=== PATIENT | male | born 1955 | race Caucasian/White ===

== ENCOUNTER 2016-11-07 01:34 | Emergency (ER) | payer MEDICAID ==
[~2016-11-07] VITALS: Ht 175.3 cm; Wt 69.0 kg
[~2016-11-07 01:34] MED LIST: LISI5TAB7 PO; NAPR220C PO; UNK BP MED
[2016-11-07] MEDS ORDERED: AMLO5TAB4 PO (01:45)
[2016-11-07] MEDS ORDERED: APAP/CODEINE 300/30MG TABLET PO PRN (02:00)
[2016-11-07] MEDS ORDERED: SODIUM CHLORIDE 0.9% 1,000ML IVBOLUS ONE (02:00)
[2016-11-07] MEDS ORDERED: SODIUM CHLORIDE FLUSH 10ML SYR IVF ONE (02:00)
[2016-11-07 02:57] LABS: HEMOGLOBIN 14.1 g/dL (13.7-18.0)
[2016-11-07 03:09] LABS: BLOOD UREA NITROGEN 7 mg/dL (7-18)
[2016-11-07 03:14] LABS: IS PT STATUS REG ER OR PRE ER? YES
[2016-11-07] MEDS ORDERED: OMNIPAQUE 350 MG/ML, 100ML BOTTLE ONE (03:52)
[2016-11-07] MEDS ORDERED: DIAZ5TAB PO (04:25)
[2016-11-07 05:37] LABS: RAPID INFLUENZA A Negative (Negative); RAPID INFLUENZA B Negative (Negative)
[2016-11-07 05:50] VITALS: BP 132/84
== END 2016-11-07 05:52 | disposition home or self-care (01) ==
LOC: ED 01:48
DX: R05 Cough (principal); I10 Essential (primary) hypertension; I48.91 Unspecified atrial fibrillation
CPT/HCPCS: 36415; 71020; 71275; 80048; 82040; 84484; 85025; 85379; 87400; 93005; 96360; 99285; J7030; Q9967

== ENCOUNTER 2017-02-09 13:10 | Inpatient (IN) | payer MEDICAID ==
[~2017-02-09] VITALS: Ht 175.3 cm; Wt 69.3 kg
[~2017-02-09 13:10] MED LIST changes: +AMLO5TAB4 PO; +DIAZ5TAB PO
[2017-02-09] MEDS ORDERED: MIDO5TAB PO (13:28)
[2017-02-09] MEDS ORDERED: TRAZ100T15 PO (13:28)
[2017-02-09] MEDS ORDERED: LISI-167 PO (13:28)
[2017-02-09] MEDS ORDERED: IBUP200C8 PO (13:28)
[2017-02-09] MEDS ORDERED: SODIUM CHLORIDE 0.9% 1,000ML IVBOLUS ONE (13:30)
[2017-02-09] MEDS ORDERED: SODIUM CHLORIDE FLUSH 10ML SYR IVF ONE (13:30)
[2017-02-09] MEDS ORDERED: KETOROLAC 30 MG/1 ML IVPush ONE (13:30)
[2017-02-09] MEDS ORDERED: PLEASE ENTER HEIGHT AND WEIGHT MC SCH (13:30)
[2017-02-09] MEDS ORDERED: KETOROLAC 30 MG/1 ML ONE (13:58)
[2017-02-09 14:13] LABS: ASPARTATE AMINO TRANSFERASE 22 U/L (15-37); BLOOD UREA NITROGEN 53 mg/dL (7-18)
[2017-02-09 14:18] LABS: IS PT STATUS REG ER OR PRE ER? YES
[2017-02-09] MEDS ORDERED: ONDANSETRON ODT 4 MG PO PRN (17:00)
[2017-02-09] MEDS ORDERED: hydrALAzine 20 MG/ML, 1ML IVPush PRN (17:00)
[2017-02-09] MEDS ORDERED: ACETAMINOPHEN 325 MG TABLET PO PRN (17:00)
[2017-02-09] MEDS ORDERED: DOCUSATE 100 MG CAPSULE PO PRN (17:00)
[2017-02-09] MEDS ORDERED: ONDANSETRON 2MG/ML, 2ML IVPush PRN (17:00)
[2017-02-09 17:13] VITALS: BP 123/78
[2017-02-09] MEDS ORDERED: POTASSIUM CHLORIDE 20 MEQ TAB.ER.PRT PO ONE ×2 (17:30→20:30)
[2017-02-09] MEDS ORDERED: PHARMACY MAY ADJ FOR RENAL FX MC PRN (17:30)
[2017-02-09] MEDS: SODIUM CHLORIDE 0.9% 1,000 ML IV SCH (18:19)
[2017-02-09] MEDS: TRAZODONE 100MG TABLET PO SCH (20:22)
[2017-02-09] MEDS: NICOTINE 7 MG/24 HR PATCH.TD24 TD SCH (20:23)
[2017-02-09] MEDS: HEPARIN 5,000 UNITS/ML, 1ML SQ SCH (20:23)
[2017-02-09 20:30] VITALS: BP 115/54
[2017-02-09 20:33] VITALS: BP 134/79
[2017-02-09 20:36] VITALS: BP 112/75
[2017-02-10] VITALS (7 sets, daily range): BP systolic 93–147; BP diastolic 63–79
[2017-02-10] MEDS: SODIUM CHLORIDE 0.9% 1,000 ML IV SCH ×3 (02:48→17:29)
[2017-02-10] MEDS: HEPARIN 5,000 UNITS/ML, 1ML SQ SCH ×3 (04:13→20:47)
[2017-02-10 05:16] LABS: BLOOD UREA NITROGEN 32 mg/dL (7-18)
[2017-02-10 05:19] LABS: ASPARTATE AMINO TRANSFERASE 15 U/L (15-37)
[2017-02-10] MEDS: THIAMINE 100MG TABLET PO SCH (09:21)
[2017-02-10] MEDS: MIDODRINE 5 MG TABLET PO SCH (09:21)
[2017-02-10] MEDS: FOLIC ACID 1 MG TABLET PO SCH (09:21)
[2017-02-10] MEDS: NICOTINE 7 MG/24 HR PATCH.TD24 TD SCH (20:47)
[2017-02-10] MEDS: TRAZODONE 100MG TABLET PO SCH (20:47)
[2017-02-11 01:27] VITALS: BP 124/67
[2017-02-11] MEDS: SODIUM CHLORIDE 0.9% 1,000 ML IV SCH (01:33)
[2017-02-11] MEDS: HEPARIN 5,000 UNITS/ML, 1ML SQ SCH (05:06)
[2017-02-11 07:10] VITALS: BP 139/70
[2017-02-11] MEDS ORDERED: MAGNESIUM SULFATE PMX 2GM/50ML 50 ML IV ONE (07:30)
[2017-02-11] MEDS: MIDODRINE 5 MG TABLET PO SCH (08:47)
[2017-02-11] MEDS: THIAMINE 100MG TABLET PO SCH (08:47)
[2017-02-11] MEDS: FOLIC ACID 1 MG TABLET PO SCH (08:47)
[2017-02-11] MEDS ORDERED: AMLODIPINE 5 MG TABLET PO SCH (09:00)
[2017-02-11] MEDS ORDERED: PNEUMOCOCCAL 23 VACCINE IM-VACC ONE (12:00)
== END 2017-02-11 12:51 | disposition home or self-care (01) | DRG 640 ==
LOC: ED 15:04 → EDIP 15:13 → 3NE 17:39 → 4EST 20:20
PROVIDERS: ADMIT Internal Medicine; ATTEND Internal Medicine
DX: E87.1 Hypo-osmolality and hyponatremia (principal); N17.0 Acute kidney failure with tubular necrosis; I50.30 Unspecified diastolic (congestive) heart failure; E87.2 Acidosis; E86.0 Dehydration; E87.6 Hypokalemia; I11.0 Hypertensive heart disease with heart failure; R33.9 Retention of urine, unspecified; F12.10 Cannabis abuse, uncomplicated; Z80.8 Family history of malignant neoplasm of other organs or systems; Z82.3 Family history of stroke; F17.200 Nicotine dependence, unspecified, uncomplicated; F10.10 Alcohol abuse, uncomplicated; I95.1 Orthostatic hypotension; M50.30 Other cervical disc degeneration, unspecified cervical region; M46.90 Unspecified inflammatory spondylopathy, site unspecified
CPT/HCPCS: 36415; 70450; 71010; 72125; 76770; 80053; 81003; 82550; 82607; 83605; 83735; 84100; 84145; 84443; 84484; 85025; 85610; 85730; 87040; 90732; 93005; 93306; 96361; 96374; J1644; J1885; J3475; J7030

== ENCOUNTER 2017-06-09 17:03 | Observation (INO) | payer MEDICAID ==
[~2017-06-09] VITALS: Ht 175.3 cm; Wt 63.9 kg
[~2017-06-09 17:03] MED LIST changes: +IBUP200C8 PO; +LISI-167 PO; +MIDO5TAB PO; +TRAZ100T15 PO
[2017-06-09 18:00] LABS: HEMATOCRIT 48.9 % (39.2-51.8); HEMOGLOBIN 16.7 g/dL (13.7-18.0); WHITE BLOOD COUNT 10.6 x10^3/uL (3.4-10)
[2017-06-09 18:09] LABS: ASPARTATE AMINO TRANSFERASE 130 U/L (15-37); BLOOD UREA NITROGEN 10 mg/dL (7-18)
[2017-06-09 18:54] LABS: ACETAMINOPHEN < 2 mcg/mL (10-30)
[2017-06-09] MEDS ORDERED: SODIUM CHLORIDE 0.9% 1,000ML IVBOLUS ONE (20:30)
[2017-06-09] MEDS ORDERED: hydrALAzine 20 MG/ML, 1ML IVPush PRN (21:30)
[2017-06-09 23:14] VITALS: BP 170/68
[2017-06-09] MEDS: ENOXAPARIN 40 MG/0.4 ML SQ SCH (23:53)
[2017-06-10 00:57] VITALS: BP 121/61
[2017-06-10 07:05] VITALS: BP 153/70
[2017-06-10 07:16] LABS: DAU SCREEN DISCLAIMER
[2017-06-10 08:44] LABS: HEMATOCRIT 43.7 % (39.2-51.8); HEMOGLOBIN 14.9 g/dL (13.7-18.0); WHITE BLOOD COUNT 10.1 x10^3/uL (3.4-10)
[2017-06-10 08:58] LABS: BLOOD UREA NITROGEN 13 mg/dL (7-18)
[2017-06-10] MEDS: SODIUM CHLORIDE FLUSH 10ML SYR IVF SCH ×2 (09:00→21:00)
[2017-06-10 09:01] LABS: ASPARTATE AMINO TRANSFERASE 103 U/L (15-37)
[2017-06-10 12:06] VITALS: BP 163/74
[2017-06-10 14:30] VITALS: BP 157/72
[2017-06-10] MEDS: SODIUM CHLORIDE 0.9% 1,000 ML IV SCH ×3 (16:00→16:08)
[2017-06-10 20:00] VITALS: BP 156/74
[2017-06-10] MEDS ORDERED: LORazepam 2 MG/ML, 1ML IVPush PRN (21:00)
[2017-06-10] MEDS: ENOXAPARIN 40 MG/0.4 ML SQ SCH (21:32)
[2017-06-11 02:00] VITALS: BP 151/83
[2017-06-11 05:46] LABS: HEMATOCRIT 42.9 % (39.2-51.8); HEMOGLOBIN 14.8 g/dL (13.7-18.0); WHITE BLOOD COUNT 11.4 x10^3/uL (3.4-10)
[2017-06-11 06:02] LABS: ASPARTATE AMINO TRANSFERASE 80 U/L (15-37); BLOOD UREA NITROGEN 13 mg/dL (7-18)
[2017-06-11] MEDS ORDERED: POTASSIUM CHLORIDE 20 MEQ TAB.ER.PRT PO ONE (06:30)
[2017-06-11] MEDS: SODIUM CHLORIDE 0.9% 1,000 ML IV SCH ×2 (07:56→15:49)
[2017-06-11] MEDS: SODIUM CHLORIDE FLUSH 10ML SYR IVF SCH ×2 (07:56→21:33)
[2017-06-11 08:00] VITALS: BP 143/66
[2017-06-11 14:00] VITALS: BP 160/92
[2017-06-11 19:06] VITALS: BP 154/88
[2017-06-11] MEDS: ENOXAPARIN 40 MG/0.4 ML SQ SCH (21:33)
[2017-06-12] MEDS: GUAIFENESIN 100 MG/5 ML, 10ML UDC PO PRN ×2 (00:19→20:47)
[2017-06-12] MEDS ORDERED: CEFTRIAXONE PMX 1GM/50ML 50 ML IV SCH (01:30)
[2017-06-12] MEDS ORDERED: AZITHROMYCIN 500 MG in SODIUM CHLORIDE 0.9% 250 ML IV SCH (02:00)
[2017-06-12] MEDS ORDERED: LEVOFLOXACIN/PMX 500MG/100ML 100 ML IV SCH (02:30)
[2017-06-12 04:29] VITALS: BP 122/67
[2017-06-12 05:16] LABS: HEMATOCRIT 41.7 % (39.2-51.8); HEMOGLOBIN 14.3 g/dL (13.7-18.0); WHITE BLOOD COUNT 10.8 x10^3/uL (3.4-10)
[2017-06-12 05:35] LABS: BLOOD UREA NITROGEN 9 mg/dL (7-18)
[2017-06-12] MEDS: SODIUM CHLORIDE FLUSH 10ML SYR IVF SCH ×2 (09:48→20:48)
[2017-06-12] MEDS: POTASSIUM CHLORIDE 10 MEQ in SODIUM CHLORIDE 0.9% 1,000 ML IV SCH (13:43)
[2017-06-12 19:16] VITALS: BP 126/72
[2017-06-12] MEDS: ENOXAPARIN 40 MG/0.4 ML SQ SCH (20:47)
[2017-06-12] MEDS: ACETAMINOPHEN 325 MG TABLET PO PRN (20:51)
[2017-06-13 01:48] VITALS: BP 119/68
[2017-06-13] MEDS: POTASSIUM CHLORIDE 10 MEQ in SODIUM CHLORIDE 0.9% 1,000 ML IV SCH (01:53)
[2017-06-13] MEDS: ACETAMINOPHEN 325 MG TABLET PO PRN (05:34)
[2017-06-13 05:56] LABS: HEMATOCRIT 44.5 % (39.2-51.8); HEMOGLOBIN 15.1 g/dL (13.7-18.0)
[2017-06-13 06:28] LABS: BLOOD UREA NITROGEN 8 mg/dL (7-18)
[2017-06-13 07:55] VITALS: BP 146/83
[2017-06-13] MEDS: SODIUM CHLORIDE FLUSH 10ML SYR IVF SCH (09:00)
[2017-06-13 12:56] VITALS: BP 133/71
== END 2017-06-13 14:30 | disposition home or self-care (01) ==
LOC: ED 18:53 → EDIP 21:15 → INTOOBSV 21:15 → 4WST 23:07 → DCLOUNGE 06-13 14:22
PROVIDERS: ADMIT Internal Medicine; ATTEND Internal Medicine
DX: F32.9 Major depressive disorder, single episode, unspecified (principal); I45.81 Long QT syndrome; I10 Essential (primary) hypertension; F43.21 Adjustment disorder with depressed mood; F10.129 Alcohol abuse with intoxication, unspecified; F12.90 Cannabis use, unspecified, uncomplicated; Z82.3 Family history of stroke
CPT/HCPCS: 36415; 70450; 71010; 80048; 80053; 80307; 80329; 81001; 85025; 87086; 93005; 96361; 96365; 96372; 99285; G0378; J1650; J1956; J2060; J3480; J7030; G0479; G0480

== ENCOUNTER → 2017-11-14 | Outpatient (CLI) | payer MEDICAID ==
[~2017-11-14] VITALS: Ht 175.3 cm; Wt 68.2 kg
[~2017-11-14] MED LIST changes: +DIAZ2TAB3 PO; +LISI2.5T PO; +MELO15TA24 PO; +OXYC1TAB7 PO
[2017-11-14 09:14] LABS: MICROSCOPIC NOT IND
[2017-11-14 09:20] LABS: CULTURE INDICATED? NO
[2017-11-14 09:21] LABS: BASOPHILS # (AUTO) 0.04 x10^3/uL (0-0.1); BASOPHILS % (AUTO) 0 % (0-1); EOSINOPHILS # (AUTO) 0.07 x10^3/uL (0-0.4); EOSINOPHILS % (AUTO) 1 % (1-7); LYMPHOCYTES # (AUTO) 1.75 x10^3/uL (1-3.4); LYMPHOCYTES % (AUTO) 17 % (22-44); MD NO; MEAN CORPUSCULAR HEMOGLOBIN 32.5 pg (27.5-34.5); MEAN CORPUSCULAR VOLUME 95.7 fL (81-97); MEAN PLATELET VOLUME 7.9 fL (7.4-10.4); MONOCYTES # (AUTO) 1.27 x10^3/uL (0.2-0.8); MONOCYTES % (AUTO) 13 % (2-9); NEUTROPHILS # (AUTO) 7.06 x10^3/uL (1.8-6.8); NEUTROPHILS % (AUTO) 69 % (42-75); PLATELET COUNT 340 x10^3/uL (130-400); RED BLOOD COUNT 5.05 x10^6/uL (4.38-5.82); RED CELL DISTRIBUTION WIDTH 13.1 % (9.4-14.8)
[2017-11-14 09:26] LABS: ALBUMIN 4.6 g/dL (3.4-5.0); ANION GAP 6 mmol/L (5-15); CALCIUM 9.3 mg/dL (8.5-10.1); CHLORIDE 105 mmol/L (98-107)
[2017-11-14 09:30] LABS: ALANINE AMINOTRANSFERASE 22 U/L (12-78); ALKALINE PHOSPHATASE 104 U/L (45-117); BILIRUBIN,TOTAL 1.9 mg/dL (0.2-1.0); TOTAL PROTEIN 8.1 g/dL (6.4-8.2)
== END | disposition home or self-care (01) ==
LOC: STAR 13:55 → EDSTATUS 11-30 07:30
PROVIDERS: ATTEND Orthopaedic Surgery Orthopaedic Surgery of the Spine
DX: Z01.818 Encounter for other preprocedural examination (principal); M48.02 Spinal stenosis, cervical region; I49.1 Atrial premature depolarization; I10 Essential (primary) hypertension; I51.7 Cardiomegaly; Z87.891 Personal history of nicotine dependence
CPT/HCPCS: 36415; 71046; 80053; 81003; 85025; 93005

== ENCOUNTER 2017-11-30 05:25 | Inpatient (IN) | payer MEDICAID ==
[~2017-11-30] VITALS: Ht 175.3 cm; Wt 65.0 kg
[2017-11-30] MEDS ORDERED: LACTATED RINGERS 1,000 ML IV SCH ×2 (06:05)
[2017-11-30 06:30] VITALS: BP 185/81
[2017-11-30] MEDS ORDERED: THROMBIN 5,000 UNIT VIAL TP ONE (06:54)
[2017-11-30] MEDS ORDERED: TRANEXAMIC ACID 100 MG/ML, 10ML ONE (06:54)
[2017-11-30] MEDS ORDERED: BUPIVACAINE/PF 0.5% ONE (06:54)
[2017-11-30] MEDS ORDERED: BACITRACIN 50,000 UNIT ONE (06:54)
[2017-11-30] MEDS ORDERED: GABAPENTIN 300 MG CAPSULE ONE (07:21)
[2017-11-30] MEDS ORDERED: ACETAMINOPHEN 500 MG TABLET ONE (07:22)
[2017-11-30] MEDS ORDERED: OxyconTIN ER 10 MG TAB.ER ONE (07:22)
[2017-11-30] MEDS ORDERED: ONDANSETRON ODT 8 MG ONE (07:23)
[2017-11-30] MEDS ORDERED: ACETAMINOPHEN 500 MG TABLET PO STA (07:25)
[2017-11-30] MEDS ORDERED: OxyconTIN ER 10 MG TAB.ER PO STA (07:25)
[2017-11-30] MEDS ORDERED: ONDANSETRON ODT 8 MG PO STA (07:25)
[2017-11-30] MEDS ORDERED: PHARMACY MAY ADJ FOR RENAL FX MC PRN (07:30)
[2017-11-30] MEDS ORDERED: BISACODYL 10 MG SUPP PR PRN (07:30)
[2017-11-30] MEDS ORDERED: SENNA/DOCUSATE TABLET PO PRN (07:30)
[2017-11-30] MEDS ORDERED: HYDROmorphone/PF 4 MG/ML, 1ML IM PRN (07:30)
[2017-11-30] MEDS ORDERED: GABAPENTIN 300 MG CAPSULE PO ONE (07:30)
[2017-11-30] MEDS ORDERED: MAGNESIUM HYDROXIDE 8%, 30ML UDC PO PRN (07:30)
[2017-11-30] MEDS ORDERED: ACETAMINOPHEN 325 MG TABLET PO PRN ×2 (07:30→12:00)
[2017-11-30] MEDS ORDERED: SUCCINYLCHOLINE 20 MG/ML, 10ML ONE (07:34)
[2017-11-30] MEDS ORDERED: ONDANSETRON 2MG/ML, 2ML ONE (07:34)
[2017-11-30] MEDS ORDERED: PROPOFOL 10 MG/ML, 50ML ONE (07:34)
[2017-11-30] MEDS ORDERED: PROPOFOL 10 MG/ML, 20ML ONE (07:34)
[2017-11-30] MEDS ORDERED: DEXAMETHASONE 4 MG/ML, 1ML ONE (07:34)
[2017-11-30] MEDS ORDERED: METOPROLOL 1 MG/ML, 5ML ONE (07:34)
[2017-11-30] MEDS ORDERED: CEFAZOLIN 1,000 MG ONE (07:34)
[2017-11-30] MEDS: TIZANIDINE 4MG TABLET PO SCH ×2 (08:00→16:04)
[2017-11-30] MEDS ORDERED: FENTANYL PF 100 MCG/2ML ONE (11:48)
[2017-11-30] MEDS ORDERED: OXYcodone 5 MG/5 ML ORAL.SOL UDC ONE (11:48)
[2017-11-30] MEDS ORDERED: ALBUTEROL SULFATE 2.5 MG/3 ML NPPB PRN (12:00)
[2017-11-30] MEDS ORDERED: HYDROmorphone 1 MG/ML, 1ML IV PRN (12:00)
[2017-11-30] MEDS ORDERED: PROMETHAZINE 25 MG/ML, 1ML IV PRN (12:00)
[2017-11-30] MEDS ORDERED: PROMETHAZINE 12.5 MG SUPP PR PRN (12:00)
[2017-11-30] MEDS ORDERED: OXYcodone 5 MG/5 ML ORAL.SOL UDC PO PRN (12:00)
[2017-11-30] MEDS ORDERED: LABETALOL 5MG/ML, 20ML IV PRN (12:00)
[2017-11-30] MEDS ORDERED: hydrALAzine 20 MG/ML, 1ML IV PRN (12:00)
[2017-11-30] MEDS ORDERED: MEPERIDINE/PF 25MG/0.5ML IVPush PRN (12:00)
[2017-11-30] MEDS ORDERED: FENTANYL PF 100 MCG/2ML IV PRN (12:00)
[2017-11-30 13:05] VITALS: BP 157/88
[2017-11-30] MEDS: LISINOPRIL 5 MG TABLET PO SCH (13:52)
[2017-11-30] MEDS: CEFAZOLIN PMX 1GM/50ML 50 ML IVPB SCH (15:23)
[2017-11-30 19:09] VITALS: BP 149/77
[2017-11-30] MEDS: OXYcodone/APAP 5/325MG TABLET PO PRN (20:34)
[2017-12-01 00:19] VITALS: BP 133/65
[2017-12-01] MEDS: OXYcodone/APAP 5/325MG TABLET PO PRN (00:46)
[2017-12-01] MEDS: CEFAZOLIN PMX 1GM/50ML 50 ML IVPB SCH (00:46)
[2017-12-01 04:11] VITALS: BP 125/63
[2017-12-01] MEDS: TIZANIDINE 4MG TABLET PO SCH ×2 (08:00)
[2017-12-01 08:02] VITALS: BP 163/78
[2017-12-01] MEDS: LISINOPRIL 5 MG TABLET PO SCH (08:07)
== END 2017-12-01 12:40 | disposition home or self-care (01) | DRG 473 ==
LOC: ORIP 05:25 → 4NOR 12:32
PROVIDERS: ADMIT Orthopaedic Surgery Orthopaedic Surgery of the Spine; ATTEND Orthopaedic Surgery Orthopaedic Surgery of the Spine
PROC: 0RG20A0 Fusion of 2 or more Cervical Vertebral Joints with Interbody Fusion Device, Anterior Approach, Anterior Column, Open Approach (ICD-10-PCS; 2017-11-30)
PROC: 4A11X4G Monitoring of Peripheral Nervous Electrical Activity, Intraoperative, External Approach (ICD-10-PCS; 2017-11-30)
PROC: 0RT30ZZ Resection of Cervical Vertebral Disc, Open Approach (ICD-10-PCS; principal; 2017-11-30 07:30)
DX: M48.02 Spinal stenosis, cervical region (principal); M50.10 Cervical disc disorder with radiculopathy, unspecified cervical region
CPT/HCPCS: 72040; C1713; J0690; J1100; J2250; J2405; J2704; J3010; J3490; Q0162; C1762; J0330; J7120

== ENCOUNTER 2017-12-26 09:47 | Emergency (ER) | payer MEDICAID ==
[~2017-12-26] VITALS: Ht 175.3 cm; Wt 60.0 kg
[2017-12-26] MEDS ORDERED: LISI-170 PO (13:01)
[2017-12-26] MEDS ORDERED: KETOROLAC 30 MG/1 ML IM ONE (15:30)
[2017-12-26] MEDS ORDERED: KETOROLAC 30 MG/1 ML ONE (15:34)
[2017-12-26 16:09] LABS: BASOPHILS # (AUTO) 0.07 x10^3/uL (0-0.1); BASOPHILS % (AUTO) 1 % (0-1); EOSINOPHILS # (AUTO) 0.05 x10^3/uL (0-0.4); EOSINOPHILS % (AUTO) 1 % (1-7); LYMPHOCYTES # (AUTO) 2.22 x10^3/uL (1-3.4); LYMPHOCYTES % (AUTO) 20 % (22-44); MD NO; MEAN CORPUSCULAR HEMOGLOBIN 32.3 pg (27.5-34.5); MEAN CORPUSCULAR HGB CONC 33.7 g/dL (33.2-36.2); MEAN PLATELET VOLUME 7.7 fL (7.4-10.4); MONOCYTES % (AUTO) 5 % (2-9); NEUTROPHILS % (AUTO) 74 % (42-75); PLATELET COUNT 475 x10^3/uL (130-400); RED BLOOD COUNT 4.36 x10^6/uL (4.38-5.82)
[2017-12-26 16:14] LABS: ALBUMIN 4.3 g/dL (3.4-5.0); ANION GAP 12 mmol/L (5-15); CALCIUM 8.5 mg/dL (8.5-10.1); CHLORIDE 106 mmol/L (98-107); CREATININE 0.73 mg/dL (0.7-1.3)
[2017-12-26 16:19] LABS: TROPONIN I < 0.015 ng/mL (0.000-0.045)
[2017-12-26 17:42] VITALS: BP 136/74
== END 2017-12-26 17:46 | disposition home or self-care (01) ==
LOC: ED 17:39
DX: M54.12 Radiculopathy, cervical region (principal); I10 Essential (primary) hypertension; Z87.891 Personal history of nicotine dependence; Z88.8 Allergy status to other drugs, medicaments and biological substances; I48.91 Unspecified atrial fibrillation
CPT/HCPCS: 36415; 80048; 82040; 83605; 84484; 85025; 93005; 96372; 99285; J1885

== ENCOUNTER 2018-01-01 12:40 | Emergency (ER) | payer MEDICAID ==
[~2018-01-01] VITALS: Ht 175.3 cm; Wt 75.0 kg
[~2018-01-01 12:40] MED LIST changes: +LISI-170 PO
[2018-01-01] MEDS ORDERED: KETOROLAC 60 MG/2 ML IM ONE (13:30)
[2018-01-01] MEDS ORDERED: METHOCARBAMOL 750 MG TABLET PO ONE (13:30)
[2018-01-01] MEDS ORDERED: OXYcodone/APAP 5/325MG TABLET PO ONE (13:30)
[2018-01-01] MEDS ORDERED: METHOCARBAMOL 750 MG TABLET ONE (13:56)
[2018-01-01] MEDS ORDERED: KETOROLAC 30 MG/1 ML ONE (13:57)
[2018-01-01] MEDS ORDERED: OXYcodone/APAP 5/325MG TABLET ONE (13:57)
[2018-01-01 15:16] VITALS: BP 167/80
== END 2018-01-01 15:18 | disposition home or self-care (01) ==
LOC: ED 14:46
DX: S16.1XXA Strain of muscle, fascia and tendon at neck level, initial encounter (principal); S29.012A Strain of muscle and tendon of back wall of thorax, initial encounter; S60.222A Contusion of left hand, initial encounter; F32.9 Major depressive disorder, single episode, unspecified; E86.1 Hypovolemia; I48.91 Unspecified atrial fibrillation; I10 Essential (primary) hypertension; W19.XXXA Unspecified fall, initial encounter; Y93.89 Activity, other specified; Y92.096 Garden or yard of other non-institutional residence as the place of occurrence of the external cause; Y99.8 Other external cause status
CPT/HCPCS: 72020; 72050; 72072; 73130; 96372; 99284; J1885

== ENCOUNTER 2018-05-14 11:32 | Emergency (ER) | payer MEDICAID ==
[~2018-05-14] VITALS: Ht 172.7 cm; Wt 64.0 kg
[~2018-05-14 11:32] MED LIST changes: +TRAZ-137 PO; -TRAZ100T15 PO
[2018-05-14 11:43] VITALS: BP 144/90
[2018-05-14] MEDS ORDERED: SODIUM CHLORIDE FLUSH 10ML SYR IVF ONE (12:30)
[2018-05-14 12:53] LABS: BASOPHILS # (AUTO) 0.08 x10^3/uL (0-0.1); BASOPHILS % (AUTO) 1 % (0-1); EOSINOPHILS # (AUTO) 0.08 x10^3/uL (0-0.4); EOSINOPHILS % (AUTO) 1 % (1-7); LYMPHOCYTES # (AUTO) 1.85 x10^3/uL (1-3.4); LYMPHOCYTES % (AUTO) 23 % (22-44); MD NO; MEAN CORPUSCULAR HEMOGLOBIN 32.7 pg (27.5-34.5); MEAN CORPUSCULAR HGB CONC 34.6 g/dL (33.2-36.2); MEAN CORPUSCULAR VOLUME 94.4 fL (81-97); MEAN PLATELET VOLUME 7.8 fL (7.4-10.4); MONOCYTES # (AUTO) 1.13 x10^3/uL (0.2-0.8); MONOCYTES % (AUTO) 14 % (2-9); NEUTROPHILS # (AUTO) 4.95 x10^3/uL (1.8-6.8); NEUTROPHILS % (AUTO) 61 % (42-75); PLATELET COUNT 372 x10^3/uL (130-400); RED BLOOD COUNT 4.39 x10^6/uL (4.38-5.82); RED CELL DISTRIBUTION WIDTH 12.8 % (9.4-14.8)
[2018-05-14] MEDS ORDERED: PLEASE ENTER HEIGHT AND WEIGHT MC SCH (13:00)
[2018-05-14 13:05] LABS: ALBUMIN 4.1 g/dL (3.4-5.0); ANION GAP 9 mmol/L (5-15); CALCIUM 8.5 mg/dL (8.5-10.1); CHLORIDE 104 mmol/L (98-107)
[2018-05-14 13:11] LABS: CREATININE 0.83 mg/dL (0.7-1.3); TROPONIN I < 0.015 ng/mL (0.000-0.045)
[2018-05-14] MEDS ORDERED: SODIUM CHLORIDE 0.9% 1,000ML IVBOLUS ONE (13:30)
== END 2018-05-14 14:33 | disposition left against medical advice (07) ==
LOC: ED 14:15
DX: S16.1XXA Strain of muscle, fascia and tendon at neck level, initial encounter (principal); R55 Syncope and collapse; E86.0 Dehydration; F32.9 Major depressive disorder, single episode, unspecified; I48.91 Unspecified atrial fibrillation; I10 Essential (primary) hypertension; X58.XXXA Exposure to other specified factors, initial encounter; Y93.9 Activity, unspecified; Y92.89 Other specified places as the place of occurrence of the external cause; Y99.8 Other external cause status
CPT/HCPCS: 36415; 70450; 71045; 72125; 80048; 80307; 82040; 83735; 84436; 84443; 84484; 85025; 93005; 96360; 99285; J7030

== ENCOUNTER 2018-06-11 14:06 | Emergency (ER) | payer MEDICAID ==
[~2018-06-11] VITALS: Ht 172.7 cm; Wt 68.3 kg
== END 2018-06-11 15:54 | disposition left against medical advice (07) ==
LOC: ED 14:15
DX: R07.89 Other chest pain (principal); F10.220 Alcohol dependence with intoxication, uncomplicated; I10 Essential (primary) hypertension; I48.91 Unspecified atrial fibrillation
CPT/HCPCS: 93005; 99283

== ENCOUNTER → 2018-06-12 | Outpatient (CLI) | payer MEDICAID | END | disposition home or self-care (01) | LOC: CFH 07:11 | PROVIDERS: ATTEND Internal Medicine Cardiovascular Disease | DX: I08.1 Rheumatic disorders of both mitral and tricuspid valves (principal); I10 Essential (primary) hypertension; F17.210 Nicotine dependence, cigarettes, uncomplicated | CPT/HCPCS: 78452; 93017; 93306; A9502 ==

== ENCOUNTER 2019-01-08 16:38 | Inpatient (IN) | payer MEDICAID ==
[~2019-01-08] VITALS: Ht 175.3 cm; Wt 65.0 kg
[~2019-01-08 16:38] MED LIST changes: +GABA300C10 PO; +METO25TA35 PO; -MIDO5TAB PO; +MIDO5TAB9 PO; -NAPR220C PO; +NAPR220C62 PO
[2019-01-08] MEDS ORDERED: DILTIAZEM 5 MG/ML, 5ML ONE (16:56)
--- NOTE | 2019-01-08 17:00 | NUR ---
pt bib [facility] after falling off a ladder at which he was 2 feet up. pt with rapid afib. ekg done and presented to md. pt placed on bp, cardiac, and cont. pulse oximeter. assessment completed. iv started in fielf. pt placed on zoll pads. md at bedside.
[2019-01-08] MEDS ORDERED: ONDANSETRON 2MG/ML, 2ML ONE (17:13)
[2019-01-08] MEDS ORDERED: ASPIRIN 81 MG TABLET CHEW ONE (17:13)
[2019-01-08] MEDS ORDERED: MORPHINE SULFATE 4 MG/ML, 1ML ONE (17:14)
[2019-01-08] MEDS ORDERED: ASPIRIN 81 MG TABLET CHEW PO ONE (17:30)
[2019-01-08] MEDS ORDERED: MORPHINE SULFATE 4 MG/ML, 1ML IVPush PRN (17:30)
[2019-01-08] MEDS ORDERED: ONDANSETRON 2MG/ML, 2ML IVPush ONE (17:30)
[2019-01-08] MEDS ORDERED: SODIUM CHLORIDE 0.9% 1,000ML IVBOLUS ONE (17:30)
[2019-01-08] MEDS ORDERED: DILTIAZEM 5 MG/ML, 5ML IV ONE (17:30)
[2019-01-08 17:31] LABS: MEAN CORPUSCULAR HEMOGLOBIN 33.3 pg (27.5-34.5); MEAN CORPUSCULAR VOLUME 98.1 fL (81-97); MEAN PLATELET VOLUME 7.8 fL (7.4-10.4); PLATELET COUNT 266 x10^3/uL (130-400); RED BLOOD COUNT 4.31 x10^6/uL (4.38-5.82); RED CELL DISTRIBUTION WIDTH 13.2 % (9.4-14.8)
[2019-01-08 17:33] LABS: ALBUMIN 3.8 g/dL (3.4-5.0); ANION GAP 12 mmol/L (5-15); CHLORIDE 106 mmol/L (98-107)
[2019-01-08 17:40] LABS: ALANINE AMINOTRANSFERASE 76 U/L (12-78); ALKALINE PHOSPHATASE 115 U/L (45-117); BILIRUBIN,TOTAL 0.7 mg/dL (0.2-1.0); CREATININE 0.94 mg/dL (0.7-1.3); FREE T4 (FREE THYROXINE) 0.97 ng/dL (0.76-1.46); TOTAL PROTEIN 6.9 g/dL (6.4-8.2); TROPONIN I < 0.015 ng/mL (0.000-0.045)
--- NOTE | 2019-01-08 17:43 | NUR ---
CARDIZEM GTT ORDERED.
[2019-01-08 17:45] LABS: INTERNATIONAL NORMALIZED RATIO 0.96 (0.93-1.1); PROTHROMBIN TIME 10.1 Seconds (9.6-11.5)
[2019-01-08 17:52] LABS: BASOPHILS # (AUTO) 0.02 x10^3/uL (0-0.1); BASOPHILS % (AUTO) 0 % (0-1); EOSINOPHILS # (AUTO) 0.03 x10^3/uL (0-0.4); EOSINOPHILS % (AUTO) 1 % (1-7); LYMPHOCYTES # (AUTO) 1.49 x10^3/uL (1-3.4); LYMPHOCYTES % (AUTO) 25 % (22-44); MD SCAN; MONOCYTES # (AUTO) 1.02 x10^3/uL (0.2-0.8); MONOCYTES % (AUTO) 17 % (2-9); NEUTROPHILS # (AUTO) 3.33 x10^3/uL (1.8-6.8); NEUTROPHILS % (AUTO) 57 % (42-75)
[2019-01-08] MEDS ORDERED: DILTIAZEM 125 MG in SODIUM CHLORIDE 0.9% 100 ML IV PRN (18:00)
--- NOTE | 2019-01-08 18:27 | NUR ---
2ND EKG DONE.
[2019-01-08] MEDS ORDERED: MAGNESIUM SULFATE PMX 2GM/50ML 50 ML IV ONE (18:30)
--- NOTE | 2019-01-08 18:52 | NUR ---
2nd iv started and pt will go to floor.
[2019-01-08 20:05] VITALS: BP 110/65
[2019-01-08] MEDS ORDERED: PLEASE ENTER HEIGHT AND WEIGHT MC SCH ×2 (20:30→21:00)
[2019-01-08] MEDS ORDERED: POTASSIUM CHLORIDE 20 MEQ TAB.ER.PRT PO ONE (20:30)
[2019-01-08] MEDS ORDERED: MAGNESIUM SULFATE 3 GM in SODIUM CHLORIDE 0.9% 100 ML IV ONE (20:30)
[2019-01-08] MEDS ORDERED: FOLIC ACID 5 MG/ML IM ONE (21:00)
[2019-01-08] MEDS ORDERED: LORazepam 2 MG/ML, 1ML IV PRN ×4 (21:00)
[2019-01-08 21:15] LABS: TROPONIN I 0.016 ng/mL (0.000-0.045)
[2019-01-08] MEDS ORDERED: FOLIC ACID 1 MG TABLET PO ONE (22:00)
[2019-01-08] MEDS ORDERED: THIAMINE 100 MG in DEXTROSE 5% 50 ML IVPB SCH (22:00)
[2019-01-08] MEDS: APIXABAN 5 MG TABLET PO SCH (22:10)
[2019-01-08] MEDS: DILTIAZEM 30 MG TABLET PO SCH (22:11)
[2019-01-08] MEDS: NICOTINE 14MG/24 HR PATCH.TD24 TD SCH (22:12)
[2019-01-08] MEDS: GABAPENTIN 300 MG CAPSULE PO SCH (22:12)
[2019-01-08] MEDS: SODIUM CHLORIDE FLUSH 10ML SYR IVF SCH (22:12)
[2019-01-08] MEDS ORDERED: DIAZ5TAB4 PO (22:35)
[2019-01-08] MEDS: THIAMINE 100MG TABLET PO SCH (23:02)
[2019-01-09] MEDS ORDERED: DILTIAZEM 125 MG in SODIUM CHLORIDE 0.9% 100 ML IV SCH
[2019-01-09 02:43] LABS: ALANINE AMINOTRANSFERASE 63 U/L (12-78); ALBUMIN 3.4 g/dL (3.4-5.0); ANION GAP 7 mmol/L (5-15); CALCIUM 7.9 mg/dL (8.5-10.1); CHLORIDE 109 mmol/L (98-107); CREATININE 0.79 mg/dL (0.7-1.3)
[2019-01-09 02:54] LABS: ALKALINE PHOSPHATASE 101 U/L (45-117); BILIRUBIN,TOTAL 0.8 mg/dL (0.2-1.0); TOTAL PROTEIN 6.2 g/dL (6.4-8.2)
[2019-01-09 02:59] LABS: BASOPHILS # (AUTO) 0.05 x10^3/uL (0-0.1); BASOPHILS % (AUTO) 1 % (0-1); EOSINOPHILS # (AUTO) 0.08 x10^3/uL (0-0.4); EOSINOPHILS % (AUTO) 2 % (1-7); LYMPHOCYTES % (AUTO) 31 % (22-44); MD NO; MEAN CORPUSCULAR HEMOGLOBIN 31.7 pg (27.5-34.5); MEAN CORPUSCULAR VOLUME 99.1 fL (81-97); MONOCYTES # (AUTO) 0.65 x10^3/uL (0.2-0.8); MONOCYTES % (AUTO) 13 % (2-9); NEUTROPHILS # (AUTO) 2.73 x10^3/uL (1.8-6.8); NEUTROPHILS % (AUTO) 54 % (42-75); PLATELET COUNT 217 x10^3/uL (130-400); RED BLOOD COUNT 3.94 x10^6/uL (4.38-5.82); RED CELL DISTRIBUTION WIDTH 13.2 % (9.4-14.8)
[2019-01-09 03:19] LABS: TROPONIN I < 0.015 ng/mL (0.000-0.045)
[2019-01-09 04:05] VITALS: BP_SYST 137; BP_SYST 142; BP_SYST 147; BP_DIAS 68; BP_DIAS 70; BP_DIAS 71
[2019-01-09] MEDS: DILTIAZEM 30 MG TABLET PO SCH ×4 (04:07→22:30)
[2019-01-09 07:09] VITALS: BP_SYST 153; BP_SYST 160; BP_DIAS 74; BP_DIAS 77
[2019-01-09 07:10] VITALS: BP 155/83
[2019-01-09] MEDS: SODIUM CHLORIDE FLUSH 10ML SYR IVF SCH ×2 (09:00→20:47)
[2019-01-09] MEDS: APIXABAN 5 MG TABLET PO SCH ×2 (09:22→20:47)
[2019-01-09] MEDS: GABAPENTIN 300 MG CAPSULE PO SCH ×3 (09:22→20:47)
[2019-01-09] MEDS: THIAMINE 100MG TABLET PO SCH (09:22)
[2019-01-09 15:00] VITALS: BP 118/76
[2019-01-09] MEDS ORDERED: DILTIAZEM 125 MG in SODIUM CHLORIDE 0.9% 100 ML IV PRN (18:00)
[2019-01-09 20:05] VITALS: BP 138/65
[2019-01-09] MEDS: NICOTINE 14MG/24 HR PATCH.TD24 TD SCH (20:47)
[2019-01-09 22:29] VITALS: BP 127/66
[2019-01-10 02:36] VITALS: BP 137/81
[2019-01-10 04:40] VITALS: BP 122/74
[2019-01-10] MEDS: DILTIAZEM 30 MG TABLET PO SCH ×2 (04:41→09:12)
[2019-01-10 07:34] VITALS: BP 132/84
[2019-01-10 08:55] LABS: ALBUMIN 3.7 g/dL (3.4-5.0); ANION GAP 9 mmol/L (5-15); CALCIUM 8.8 mg/dL (8.5-10.1); CHLORIDE 100 mmol/L (98-107); CREATININE 0.67 mg/dL (0.7-1.3)
[2019-01-10] MEDS: SODIUM CHLORIDE FLUSH 10ML SYR IVF SCH (09:00)
[2019-01-10] MEDS: APIXABAN 5 MG TABLET PO SCH (09:09)
[2019-01-10] MEDS: GABAPENTIN 300 MG CAPSULE PO SCH (09:09)
[2019-01-10] MEDS: THIAMINE 100MG TABLET PO SCH (09:09)
[2019-01-10 09:20] LABS: MEAN CORPUSCULAR HEMOGLOBIN 33.8 pg (27.5-34.5); MEAN CORPUSCULAR HGB CONC 33.7 g/dL (33.2-36.2); MEAN CORPUSCULAR VOLUME 100.3 fL (81-97); MEAN PLATELET VOLUME 8.8 fL (7.4-10.4); PLATELET COUNT 207 x10^3/uL (130-400); RED BLOOD COUNT 4.24 x10^6/uL (4.38-5.82); RED CELL DISTRIBUTION WIDTH 13.1 % (9.4-14.8)
[2019-01-10 09:59] LABS: BASOPHILS # (AUTO) 0.03 x10^3/uL (0-0.1); BASOPHILS % (AUTO) 1 % (0-1); EOSINOPHILS # (AUTO) 0.16 x10^3/uL (0-0.4); EOSINOPHILS % (AUTO) 3 % (1-7); LYMPHOCYTES # (AUTO) 1.55 x10^3/uL (1-3.4); LYMPHOCYTES % (AUTO) 28 % (22-44); MD SCAN; MONOCYTES # (AUTO) 0.87 x10^3/uL (0.2-0.8); MONOCYTES % (AUTO) 16 % (2-9); NEUTROPHILS # (AUTO) 2.87 x10^3/uL (1.8-6.8); NEUTROPHILS % (AUTO) 52 % (42-75)
[2019-01-10] MEDS ORDERED: DILT-8 PO (13:35)
[2019-01-10] MEDS ORDERED: APIX5TAB PO (13:35)
[2019-01-10] MEDS ORDERED: NICO-486 TD (13:35)
[2019-01-10] MEDS ORDERED: THIA100T27 PO (13:36)
[2019-01-10 14:15] VITALS: BP 131/78
== END 2019-01-10 16:15 | disposition home or self-care (01) | DRG 309 ==
LOC: ED 18:24 → EDIP 18:29 → ED 18:37 → 5SO 19:03 → DCLOUNGE 01-10 15:57
PROVIDERS: ADMIT Internal Medicine; ATTEND Internal Medicine
DX: I48.91 Unspecified atrial fibrillation (principal); E87.2 Acidosis; E83.42 Hypomagnesemia; E87.6 Hypokalemia; F10.20 Alcohol dependence, uncomplicated; Y90.9 Presence of alcohol in blood, level not specified; F12.90 Cannabis use, unspecified, uncomplicated; F17.200 Nicotine dependence, unspecified, uncomplicated; I08.1 Rheumatic disorders of both mitral and tricuspid valves; I10 Essential (primary) hypertension; K70.10 Alcoholic hepatitis without ascites; Z82.3 Family history of stroke; Z90.49 Acquired absence of other specified parts of digestive tract; Z88.8 Allergy status to other drugs, medicaments and biological substances; R55 Syncope and collapse
CPT/HCPCS: 36415; 71045; 80053; 80069; 82607; 83735; 84439; 84443; 84484; 85025; 85610; 85730; 93005; 93306; 96374; 96375; 99291; G0378; J2405; J3475; J2270; J7030

== ENCOUNTER 2019-01-17 19:33 | Emergency (ER) | payer MEDICAID ==
[~2019-01-17] VITALS: Ht 175.3 cm; Wt 56.0 kg
[~2019-01-17 19:33] MED LIST changes: +APIX5TAB PO; +DIAZ5TAB4 PO; +DILT-8 PO; +NICO-486 TD; +THIA100T27 PO
--- NOTE | 2019-01-17 19:50 | NUR ---
PT IN HOSPITAL GOWN. VITALS AND CARDIAC MONITORS PLACED. NO C/O PAIN AT THIS TIME FROM PT.
[2019-01-17 20:15] LABS: BASOPHILS # (AUTO) 0.04 x10^3/uL (0-0.1); BASOPHILS % (AUTO) 1 % (0-1); EOSINOPHILS # (AUTO) 0.13 x10^3/uL (0-0.4); EOSINOPHILS % (AUTO) 2 % (1-7); LYMPHOCYTES # (AUTO) 1.97 x10^3/uL (1-3.4); LYMPHOCYTES % (AUTO) 34 % (22-44); MD NO; MEAN CORPUSCULAR HEMOGLOBIN 32.8 pg (27.5-34.5); MEAN CORPUSCULAR HGB CONC 33.3 g/dL (33.2-36.2); MEAN CORPUSCULAR VOLUME 98.4 fL (81-97); MEAN PLATELET VOLUME 7.7 fL (7.4-10.4); MONOCYTES # (AUTO) 0.84 x10^3/uL (0.2-0.8); MONOCYTES % (AUTO) 15 % (2-9); NEUTROPHILS # (AUTO) 2.82 x10^3/uL (1.8-6.8); NEUTROPHILS % (AUTO) 49 % (42-75); PLATELET COUNT 371 x10^3/uL (130-400); RED BLOOD COUNT 3.85 x10^6/uL (4.38-5.82); RED CELL DISTRIBUTION WIDTH 13.2 % (9.4-14.8)
[2019-01-17 20:26] LABS: ALANINE AMINOTRANSFERASE 23 U/L (12-78); ALBUMIN 3.7 g/dL (3.4-5.0); ANION GAP 9 mmol/L (5-15); CHLORIDE 111 mmol/L (98-107); CREATININE 0.78 mg/dL (0.7-1.3)
[2019-01-17 20:30] LABS: ALKALINE PHOSPHATASE 88 U/L (45-117); BILIRUBIN,TOTAL 0.3 mg/dL (0.2-1.0); TOTAL PROTEIN 7.1 g/dL (6.4-8.2); TROPONIN I < 0.015 ng/mL (0.000-0.045)
[2019-01-17] MEDS ORDERED: RANITIDINE (21:05)
[2019-01-17 21:26] VITALS: BP 110/73
--- NOTE | 2019-01-17 21:28 | NUR ---
PT ABLE TO DRESS SELF, PT IS STEADY ON FEET. PT HAS RIDE COMING TO PICK HIM UP. IV REMOVED. PT A&OX4.
== END 2019-01-17 21:27 | disposition home or self-care (01) ==
LOC: ED 20:48
DX: F10.129 Alcohol abuse with intoxication, unspecified (principal); R55 Syncope and collapse; I48.91 Unspecified atrial fibrillation; I11.0 Hypertensive heart disease with heart failure; I50.9 Heart failure, unspecified; F17.210 Nicotine dependence, cigarettes, uncomplicated
CPT/HCPCS: 36415; 71045; 80053; 80307; 83735; 83880; 84484; 85025; 93005; 99284

== ENCOUNTER 2019-06-13 12:29 | Emergency (ER) | payer MEDICAID ==
[~2019-06-13] VITALS: Ht 175.3 cm; Wt 68.0 kg
[~2019-06-13 12:29] MED LIST changes: +RANITIDINE
[2019-06-13] MEDS ORDERED: ASPIRIN 81 MG TABLET CHEW ONE (12:44)
[2019-06-13] MEDS ORDERED: MORPHINE SULFATE 4 MG/ML, 1ML ONE (12:45)
[2019-06-13] MEDS ORDERED: LISI5TAB7 PO (12:55)
--- NOTE | 2019-06-13 12:58 | NUR ---
BREAK RN: 63 YR OLD MALE HERE WITH C/O "CP, BEGAN LAST NIGHT. WENT TO SLEEP, WOKE UP, CHEST PAIN CAME BACK, TOOK BENADRYL." PT STATES "I WAS PLANTING TREES TODAY" DROPPED OFF BY "MY BOSS" PT WITH ONGOING MOVING ON [email or web address]. GRABBING AT CHEST. "I WANT A NEW HEART. I WISH I HAD OF FOLLOWED UP WITH THE TOGGLE PRESS OPERATOR" PT ADMITS TO DAILY ETOH. LAST INGESTION THIS AM. PT IS SUPPOSE TO BE TAKING LISINOPRIL UNKNOWN DOSAGE. LAST TAKEN 3-4 WEEKS AGO R/T "I RAN OUT" PT PLACED ON MONITORS, AUTO BP AND PULSE OX. PT MEDICATED ORDERED. PT UPDATED ON POC.
[2019-06-13] MEDS ORDERED: SODIUM CHLORIDE FLUSH 10ML SYR IVF ONE (13:00)
[2019-06-13] MEDS ORDERED: ASPIRIN 81 MG TABLET CHEW PO ONE (13:00)
[2019-06-13] MEDS ORDERED: MORPHINE SULFATE 4 MG/ML, 1ML IVPush PRN (13:00)
[2019-06-13 13:03] LABS: BASOPHILS # (AUTO) 0.04 x10^3/uL (0-0.1); BASOPHILS % (AUTO) 1 % (0-1); EOSINOPHILS % (AUTO) 2 % (1-7); LYMPHOCYTES # (AUTO) 2.03 x10^3/uL (1-3.4); LYMPHOCYTES % (AUTO) 37 % (22-44); MD NO; MEAN CORPUSCULAR HEMOGLOBIN 32.3 pg (27.5-34.5); MEAN CORPUSCULAR HGB CONC 33.3 g/dL (33.2-36.2); MEAN CORPUSCULAR VOLUME 97.1 fL (81-97); MEAN PLATELET VOLUME 7.7 fL (7.4-10.4); MONOCYTES # (AUTO) 0.56 x10^3/uL (0.2-0.8); MONOCYTES % (AUTO) 10 % (2-9); NEUTROPHILS # (AUTO) 2.74 x10^3/uL (1.8-6.8); NEUTROPHILS % (AUTO) 50 % (42-75); PLATELET COUNT 363 x10^3/uL (130-400); RED BLOOD COUNT 4.91 x10^6/uL (4.38-5.82); RED CELL DISTRIBUTION WIDTH 14.3 % (9.4-14.8)
[2019-06-13 13:11] LABS: INTERNATIONAL NORMALIZED RATIO 0.91 (0.93-1.1); PROTHROMBIN TIME 9.6 Seconds (9.6-11.5)
--- NOTE | 2019-06-13 13:11 | NUR ---
REPORT TO LINUS MCKENNA
--- NOTE | 2019-06-13 13:12 | NUR ---
RECEIVED REPORT FROM BALA REBOLLAR. PT RESTING ON [facility]. MONITORS IN PLACE.
[2019-06-13 13:19] LABS: ALKALINE PHOSPHATASE 129 U/L (45-117); BILIRUBIN,TOTAL 0.5 mg/dL (0.2-1.0); TOTAL PROTEIN 8.1 g/dL (6.4-8.2); TROPONIN I < 0.015 ng/mL (0.000-0.045)
[2019-06-13 13:24] LABS: ALANINE AMINOTRANSFERASE 15 U/L (12-78); ALBUMIN 4.3 g/dL (3.4-5.0); ANION GAP 8 mmol/L (5-15); CALCIUM 8.2 mg/dL (8.5-10.1); CHLORIDE 109 mmol/L (98-107); CREATININE 0.76 mg/dL (0.7-1.3)
--- NOTE | 2019-06-13 13:41 | NUR ---
REPORT GIVEN TO BALA REYNOSO.
--- NOTE | 2019-06-13 13:44 | NUR ---
RECEIVED BEDSIDE REPORT FROM BALA MCINTOSH. ASSUMING PT CARE AT THIS TIME. PT AMBULATORY WITH STEADY GAIT TO THE BATHROOM. PT BACK TO [facility]. PT REATTACHED TO ALL MONITORS.
--- NOTE | 2019-06-13 14:49 | NUR ---
PT RESTING ON GURNEY. PT AWARE OF LAB RESULTS. NO ACUTE DISTRESS NOTED. NO NEEDS REQUESTED AT THIS TIME.
--- NOTE | 2019-06-13 15:25 | NUR ---
PT CONTINUES TO SLEEP ON GURNEY. NO ACUTE DISTRESS NOTED. RESPS EQUAL AND UNLABORED. WILL CONTINUE TO MONITOR.
--- NOTE | 2019-06-13 16:22 | NUR ---
PT WAKES TO VERBAL STIMULI. PT UNSTEADY ON FEET. HE STATES "I ALWAYS HAVE A HARD TIME STARTING TO WALK, BUT NOT LIKE THIS." PT BACK ONTO [facility]. ALL MONITORS ATTACHED. VSS. NO ACUTE DISTRESS NOTED.
[2019-06-13 16:23] VITALS: BP 108/69
--- NOTE | 2019-06-13 17:27 | NUR ---
PT STILL SLEEPING ON GURNEY. NO ACUTE DISTRESS NOTED. VSS. RESPS EQUAL AND UNLABORED.
--- NOTE | 2019-06-13 18:04 | NUR ---
PT STATES HE IS UNABLE TO WALK AT THIS TIME. WILL CONTINUE TO MONITOR. PT PREFERS MONITORS TO BE OFF AT THIS TIME.
--- NOTE | 2019-06-13 18:21 | NUR ---
PT AMBULATORY WITH STEADY GAIT AND NO ASSISTANCE. PT CALLED . Patient/Caregiver given discharge instructions and they have confirmed that they understand the instructions. Patient ambulatory with steady gait. PT GIVEN TAXI VOUCHER. PT LEFT WITH ALL PERSONAL BELONGINGS.
== END 2019-06-13 18:24 | disposition home or self-care (01) ==
LOC: ED 13:00
DX: R07.2 Precordial pain (principal); F10.229 Alcohol dependence with intoxication, unspecified; I48.91 Unspecified atrial fibrillation; I10 Essential (primary) hypertension
CPT/HCPCS: 36415; 71045; 80053; 80307; 83880; 84484; 85025; 85610; 93005; 96374; 99284; J2270

== ENCOUNTER 2019-12-18 11:32 | Emergency (ER) | payer MEDICAID ==
[~2019-12-18] VITALS: Ht 175.3 cm; Wt 70.5 kg
[~2019-12-18 11:32] MED LIST changes: -TRAZ-137 PO; +TRAZ-175 PO
--- NOTE | 2019-12-18 11:50 | NUR ---
Pt arrived to room via EMS with IV in place. Pt placed on environmental monitoring specialist. Pt states that he has been having cough, SOB, and CP with cough x3 days that worsened today. Pt states his CP has gradually worsened and is due to him coughing. Pt stable at this time. at [facility].
[2019-12-18] MEDS ORDERED: ASPIRIN 81 MG TABLET CHEW ONE (11:55)
[2019-12-18] MEDS ORDERED: SODIUM CHLORIDE FLUSH 10ML SYR IVF ONE (12:00)
[2019-12-18] MEDS ORDERED: ASPIRIN 81 MG TABLET CHEW PO ONE (12:00)
--- NOTE | 2019-12-18 12:15 | NUR ---
Pt resting comfortably at this time.
[2019-12-18] MEDS ORDERED: MORPHINE SULFATE 4 MG/ML, 1ML IVPush PRN (12:30)
[2019-12-18] MEDS ORDERED: ONDANSETRON 2MG/ML, 2ML IVPush ONE (12:30)
[2019-12-18 12:47] LABS: MEAN CORPUSCULAR HEMOGLOBIN 32.6 pg (27.5-34.5); MEAN CORPUSCULAR HGB CONC 33.9 g/dL (33.2-36.2); MEAN CORPUSCULAR VOLUME 96.1 fL (81-97); MEAN PLATELET VOLUME 7.9 fL (7.4-10.4); PLATELET COUNT 184 x10^3/uL (130-400); RED BLOOD COUNT 4.35 x10^6/uL (4.38-5.82); RED CELL DISTRIBUTION WIDTH 14.9 % (9.4-14.8)
[2019-12-18 12:52] LABS: ALANINE AMINOTRANSFERASE 62 U/L (12-78); ALBUMIN 3.7 g/dL (3.4-5.0); ANION GAP 9 mmol/L (5-15); CALCIUM 7.8 mg/dL (8.5-10.1); CHLORIDE 106 mmol/L (98-107); CREATININE 0.69 mg/dL (0.7-1.3)
[2019-12-18 12:56] LABS: ALKALINE PHOSPHATASE 122 U/L (45-117); BILIRUBIN,TOTAL 0.8 mg/dL (0.2-1.0); TOTAL PROTEIN 6.9 g/dL (6.4-8.2); TROPONIN I < 0.015 ng/mL (0.000-0.045)
[2019-12-18 13:12] LABS: BASOPHILS % (AUTO) 0 % (0-1); EOSINOPHILS # (AUTO) 0.09 x10^3/uL (0-0.4); EOSINOPHILS % (AUTO) 2 % (1-7); LYMPHOCYTES # (AUTO) 0.99 x10^3/uL (1-3.4); LYMPHOCYTES % (AUTO) 23 % (22-44); MD SCAN; MONOCYTES # (AUTO) 0.55 x10^3/uL (0.2-0.8); MONOCYTES % (AUTO) 13 % (2-9); NEUTROPHILS # (AUTO) 2.67 x10^3/uL (1.8-6.8); NEUTROPHILS % (AUTO) 62 % (42-75)
--- NOTE | 2019-12-18 13:12 | NUR ---
CALL TO LAB, RE: FLU SWAB. "HAVE IN LAB, DO NOT NEED TO RECOLLECT"
[2019-12-18 13:57] LABS: RAPID INFLUENZA A Negative (Negative); RAPID INFLUENZA B Negative (Negative)
[2019-12-18 14:31] VITALS: BP 148/84
--- NOTE | 2019-12-18 14:33 | NUR ---
GAVE UPDATE TO PTS . PT STABLE, NOT COMPLAINING OF ANY PAIN, DISCHARGE INSTRUCTIONS GIVEN WITH RX. PT VERBALIZED UNDERSTANDING. IV REMOVED. CAB VOUCHER GIVEN. PT AMBULATORY.
== END 2019-12-18 14:35 | disposition home or self-care (01) ==
LOC: ED 11:35
DX: B34.9 Viral infection, unspecified (principal); R07.89 Other chest pain; I10 Essential (primary) hypertension; F17.200 Nicotine dependence, unspecified, uncomplicated
CPT/HCPCS: 36415; 71045; 80053; 83690; 84484; 85025; 87400; 93005; 99285

== ENCOUNTER 2020-11-08 20:53 | Inpatient (IN) | payer MEDICAID ==
[~2020-11-08] VITALS: Ht 172.7 cm; Wt 70.2 kg
[2020-11-08] MEDS ORDERED: SODIUM CHLORIDE 0.9% 1,000ML IVBOLUS ONE ×2 (21:00→21:30)
[2020-11-08] MEDS ORDERED: DILTIAZEM 5 MG/ML, 5ML IVPush ONE (21:00)
--- NOTE | 2020-11-08 21:08 | NUR ---
Patient BIBA from home c/o dizziness today with multiple syncopal episodes and SOB. Per EMS, patient in afib with RVR; no interventions by EMS aside from an IV. Patient currently in afib with RVR. Patient has a hx of afib; states years ago he had an extremely high heart rate. He was unsure what they did but states they sedated him for the procedure. Patient is in obvious discomfort. Respirations even and unlabored. ERP at bedside; Cardizem IVP ordered.
--- NOTE | 2020-11-08 21:10 | NUR ---
Patient HR improving after meds. Patient feeling tired.
[2020-11-08 21:12] LABS: BASOPHILS % (AUTO) 1 % (0-1); EOSINOPHILS % (AUTO) 2 % (1-7); LYMPHOCYTES % (AUTO) 23 % (22-44); MEAN CORPUSCULAR HEMOGLOBIN 34.3 pg (27.5-34.5); MEAN CORPUSCULAR HGB CONC 34.6 g/dL (33.2-36.2); MEAN PLATELET VOLUME 7.2 fL (7.4-10.4); MONOCYTES % (AUTO) 10 % (2-9); NEUTROPHILS % (AUTO) 64 % (42-75); PLATELET COUNT 285 x10^3/uL (130-400); RED BLOOD COUNT 4.05 x10^6/uL (4.38-5.82); RED CELL DISTRIBUTION WIDTH 13.2 % (9.4-14.8)
[2020-11-08 21:14] LABS: MD NO
--- NOTE | 2020-11-08 21:14 | NUR ---
Patient hypotensive on arrival. Fluids admin per oct.
[2020-11-08 21:20] LABS: INTERNATIONAL NORMALIZED RATIO 1.03 (0.93-1.1)
[2020-11-08 21:21] LABS: ALBUMIN 3.5 g/dL (3.4-5.0); ANION GAP 16 mmol/L (5-15); CALCIUM 7.7 mg/dL (8.5-10.1); CHLORIDE 99 mmol/L (98-107); CREATININE 0.86 mg/dL (0.7-1.3)
[2020-11-08 21:25] LABS: TROPONIN I < 0.015 ng/mL (0.000-0.045)
[2020-11-08] MEDS ORDERED: DILTIAZEM 125 MG in SODIUM CHLORIDE 0.9% 100 ML IV SCH (21:30)
[2020-11-08] MEDS ORDERED: GABA600T7 PO (21:33)
[2020-11-08] MEDS ORDERED: DIAZ2TAB3 PO (21:33)
[2020-11-08] MEDS ORDERED: DILTIAZEM 120 MG CAP.ER.12H PO ONE (22:00)
--- NOTE | 2020-11-08 22:00 | NUR ---
Patient converted to NSR. D/C Cardizem infusion per MD order.
--- NOTE | 2020-11-08 22:20 | NUR ---
Medicated patient per mar with PO Cardizem.
--- NOTE | 2020-11-08 22:30 | NUR ---
Attempted to "road test" patient. Upon standing, patient became dizzy and was unable to hold himself up. Patient tbadm.
[2020-11-08] MEDS ORDERED: DILTIAZEM 5 MG/ML, 5ML ONE (22:47)
[2020-11-08] MEDS ORDERED: D5%-0.45NACL+KCL 20MEQ 1,000 ML IV SCH (23:00)
--- NOTE | 2020-11-08 23:13 | NUR ---
Report given to BALA Griffin. Patient to be transferred to room 504.
[2020-11-08] MEDS ORDERED: MELATONIN 5 MG TABLET PO PRN (23:30)
[2020-11-08] MEDS ORDERED: PROMETHAZINE 25 MG/ML, 1ML IM PRN (23:30)
[2020-11-08] MEDS ORDERED: ONDANSETRON 2MG/ML, 2ML IVPush PRN (23:30)
[2020-11-08] MEDS ORDERED: POTASSIUM CHLORIDE 20 MEQ TAB.ER.PRT PO ONE (23:30)
[2020-11-08] MEDS ORDERED: THIAMINE 200 MG in SODIUM CHLORIDE 0.9% 50 ML IV ONE (23:30)
[2020-11-08] MEDS ORDERED: DILTIAZEM 5 MG/ML, 5ML IVPush PRN (23:30)
[2020-11-08 23:44] LABS: ALBUMIN 3.6 g/dL (3.4-5.0); BILIRUBIN, DIRECT 0.4 mg/dL (0.1-0.2)
[2020-11-08 23:55] LABS: BILIRUBIN,INDIRECT 0.6 mg/dL (0.0-2.0); TOTAL PROTEIN 6.4 g/dL (6.4-8.2)
[2020-11-09 01:35] VITALS: BP 118/66
[2020-11-09 01:36] VITALS: BP_SYST 107; BP_SYST 92; BP_DIAS 59; BP_DIAS 66
[2020-11-09 01:36] LABS: ANION GAP 13 mmol/L (5-15); CALCIUM 7.4 mg/dL (8.5-10.1); CHLORIDE 104 mmol/L (98-107); CREATININE 0.79 mg/dL (0.7-1.3)
[2020-11-09] MEDS ORDERED: OMNIPAQUE 350 MG/ML, 75ML BOTTLE ONE (01:59)
[2020-11-09] MEDS: ACETAMINOPHEN 325 MG TABLET PO PRN ×2 (02:20→08:41)
[2020-11-09] MEDS: NICOTINE 14MG/24 HR PATCH.TD24 TD SCH ×2 (02:20→23:42)
[2020-11-09] MEDS: LACTATED RINGERS 1,000 ML IV SCH ×2 (02:21→07:30)
[2020-11-09 02:26] LABS: AMPHETAMINE SCREEN, URINE Positive (Negative); BARBITURATE SCREEN, URINE Negative (Negative); BENZODIAZEPINE SCREEN, URINE Negative (Negative); CANNABINOID SCREEN, URINE Positive (Negative); COCAINE SCREEN, URINE Negative (Negative); METHADONE SCREEN, URINE Negative (Negative); OPIATE SCREEN, URINE Negative (Negative)
[2020-11-09 04:47] LABS: BASOPHILS % (AUTO) 1 % (0-1); EOSINOPHILS % (AUTO) 2 % (1-7); LYMPHOCYTES % (AUTO) 16 % (22-44); MEAN CORPUSCULAR HEMOGLOBIN 34.1 pg (27.5-34.5); MEAN CORPUSCULAR HGB CONC 34.3 g/dL (33.2-36.2); MEAN PLATELET VOLUME 7.2 fL (7.4-10.4); MONOCYTES % (AUTO) 9 % (2-9); NEUTROPHILS % (AUTO) 73 % (42-75); PLATELET COUNT 233 x10^3/uL (130-400); RED BLOOD COUNT 3.77 x10^6/uL (4.38-5.82); RED CELL DISTRIBUTION WIDTH 13.4 % (9.4-14.8)
[2020-11-09 04:50] LABS: MD NO
[2020-11-09 05:00] LABS: ALANINE AMINOTRANSFERASE 25 U/L (12-78); ANION GAP 12 mmol/L (5-15); CALCIUM 7.5 mg/dL (8.5-10.1); CHLORIDE 104 mmol/L (98-107)
[2020-11-09 05:04] LABS: ALKALINE PHOSPHATASE 82 U/L (45-117); CHOL/HDL RATIO 1.5; CHOLESTEROL, TOTAL 152 mg/dL (140-239); HDL CHOL % 65 % (26-37); HDL CHOLESTEROL (DIRECT) 99 mg/dL (40-60); LDL CHOLESTEROL,CALCULATED 43 mg/dL (54-169); LDL/HDL RATIO 0.4 (0.5-3.0); TOTAL PROTEIN 5.8 g/dL (6.4-8.2); TRIGLYCERIDES 49 mg/dL (50-200); VLDL CHOLESTEROL 10 mg/dL (0-25)
[2020-11-09] MEDS ORDERED: DEXTROSE 4 GM TAB.CHEW PO PRN (06:00)
[2020-11-09] MEDS ORDERED: DEXTROSE 50%, 50ML SYRINGE IVPush PRN (06:00)
[2020-11-09] MEDS ORDERED: GLUCAGON 1 MG IM PRN (06:00)
[2020-11-09 06:53] VITALS: BP 112/60
[2020-11-09] MEDS ORDERED: MAGNESIUM SULFATE PMX 2GM/50ML 50 ML IV ONE (07:30)
[2020-11-09] MEDS: THIAMINE 100MG TABLET PO/NG SCH (08:32)
[2020-11-09] MEDS: SODIUM CHLORIDE FLUSH 10ML SYR IVF SCH ×2 (08:32→20:40)
[2020-11-09] MEDS: POTASSIUM CHLORIDE 20 MEQ, MAGNESIUM SULFATE 1 GM, FOLIC ACID 1 MG, THIAMINE 200 MG in ... IV SCH (08:32)
[2020-11-09] MEDS: PANTOPRAZOLE 40MG TABLET PO SCH (08:32)
[2020-11-09 12:42] VITALS: BP 117/71
[2020-11-09] MEDS ORDERED: LORazepam 2 MG/ML, 1ML IV PRN ×4 (15:00)
[2020-11-09] MEDS ORDERED: LORazepam 1MG TABLET PO PRN ×4 (15:00)
[2020-11-09] MEDS: ENOXAPARIN 40 MG/0.4 ML SQ SCH (15:29)
[2020-11-09] MEDS: LORazepam 0.5MG TABLET PO PRN (15:34)
[2020-11-09 18:56] VITALS: BP 115/75
[2020-11-09] MEDS ORDERED: ACETAMINOPHEN 325 MG TABLET PO PRN (23:30)
[2020-11-10 00:17] VITALS: BP 130/83
[2020-11-10 04:42] LABS: BASOPHILS % (AUTO) 2 % (0-1); EOSINOPHILS % (AUTO) 2 % (1-7); LYMPHOCYTES % (AUTO) 22 % (22-44); MEAN CORPUSCULAR HEMOGLOBIN 33.7 pg (27.5-34.5); MEAN CORPUSCULAR HGB CONC 33.9 g/dL (33.2-36.2); MEAN PLATELET VOLUME 7.8 fL (7.4-10.4); MONOCYTES % (AUTO) 11 % (2-9); NEUTROPHILS % (AUTO) 64 % (42-75); PLATELET COUNT 204 x10^3/uL (130-400); RED BLOOD COUNT 3.76 x10^6/uL (4.38-5.82); RED CELL DISTRIBUTION WIDTH 13.3 % (9.4-14.8)
[2020-11-10 04:53] LABS: MD NO
[2020-11-10 04:56] LABS: ALANINE AMINOTRANSFERASE 19 U/L (12-78); ALBUMIN 3.1 g/dL (3.4-5.0); ANION GAP 6 mmol/L (5-15); CALCIUM 8.5 mg/dL (8.5-10.1); CHLORIDE 107 mmol/L (98-107)
[2020-11-10 04:59] LABS: ALKALINE PHOSPHATASE 84 U/L (45-117); TOTAL PROTEIN 5.9 g/dL (6.4-8.2)
[2020-11-10] MEDS: LORazepam 0.5MG TABLET PO PRN (05:27)
[2020-11-10] MEDS: SODIUM CHLORIDE FLUSH 10ML SYR IVF SCH ×2 (07:53→19:49)
[2020-11-10] MEDS: PANTOPRAZOLE 40MG TABLET PO SCH (07:53)
[2020-11-10] MEDS: POTASSIUM CHLORIDE 20 MEQ, MAGNESIUM SULFATE 1 GM, FOLIC ACID 1 MG, THIAMINE 200 MG in ... IV SCH (07:53)
[2020-11-10] MEDS: THIAMINE 100MG TABLET PO/NG SCH (07:53)
[2020-11-10] MEDS ORDERED: MAGNESIUM SULFATE PMX 2GM/50ML 50 ML IV ONE (08:00)
[2020-11-10] MEDS ORDERED: POTASSIUM CHLORIDE 20 MEQ TAB.ER.PRT PO ONE (08:00)
[2020-11-10 13:03] VITALS: BP 143/90
[2020-11-10] MEDS: ENOXAPARIN 40 MG/0.4 ML SQ SCH (15:41)
[2020-11-10 20:30] VITALS: BP 144/81
[2020-11-10] MEDS: NICOTINE 14MG/24 HR PATCH.TD24 TD SCH (23:30)
[2020-11-11 00:17] VITALS: BP 149/99
[2020-11-11 00:57] VITALS: BP 136/77
[2020-11-11 06:48] VITALS: BP 125/70
[2020-11-11] MEDS ORDERED: MULT-449 PO (07:55)
[2020-11-11] MEDS ORDERED: METO25TA35 PO (07:55)
[2020-11-11] MEDS ORDERED: MAGN400T26 PO (07:55)
[2020-11-11] MEDS: PANTOPRAZOLE 40MG TABLET PO SCH (08:27)
[2020-11-11] MEDS: THIAMINE 100MG TABLET PO/NG SCH (08:27)
[2020-11-11] MEDS: SODIUM CHLORIDE FLUSH 10ML SYR IVF SCH (08:28)
[2020-11-11] MEDS: POTASSIUM CHLORIDE 20 MEQ, MAGNESIUM SULFATE 1 GM, FOLIC ACID 1 MG, THIAMINE 200 MG in ... IV SCH (08:28)
== END 2020-11-11 10:41 | disposition home or self-care (01) | DRG 638 ==
LOC: ED 22:38 → EDIP 23:08 → 5SO 11-09 00:45 → DCLOUNGE 11-11 10:29
PROVIDERS: ADMIT Family Medicine; ATTEND Internal Medicine
DX: E11.10 Type 2 diabetes mellitus with ketoacidosis without coma (principal); D68.69 Other thrombophilia; E87.1 Hypo-osmolality and hyponatremia; F10.239 Alcohol dependence with withdrawal, unspecified; I45.89 Other specified conduction disorders; I48.91 Unspecified atrial fibrillation; E11.65 Type 2 diabetes mellitus with hyperglycemia; D75.89 Other specified diseases of blood and blood-forming organs; E11.649 Type 2 diabetes mellitus with hypoglycemia without coma; E83.42 Hypomagnesemia; E86.0 Dehydration; E86.1 Hypovolemia; E87.6 Hypokalemia; F12.10 Cannabis abuse, uncomplicated; F17.210 Nicotine dependence, cigarettes, uncomplicated; I10 Essential (primary) hypertension; I48.0 Paroxysmal atrial fibrillation; K21.9 Gastro-esophageal reflux disease without esophagitis; K70.9 Alcoholic liver disease, unspecified; K76.0 Fatty (change of) liver, not elsewhere classified; F32.9 Major depressive disorder, single episode, unspecified; Z79.01 Long term (current) use of anticoagulants; Z91.14 Patient's other noncompliance with medication regimen; Z91.19 Patient's noncompliance with other medical treatment and regimen; Z98.1 Arthrodesis status; Z79.899 Other long term (current) drug therapy; Z79.891 Long term (current) use of opiate analgesic
CPT/HCPCS: 36415; 96365; 96375; 99291; J7042; 70450; 71045; 71275; 80048; 80053; 80061; 80076; 80307; 80320; 82040; 82607; 82947; 82962; 83735; 83880; 84100; 84443; 84484; 85025; 85379; 85610; 93005; 93306; G0378; J1650; J3411; J3475; J3480; Q9967; G0480; J7030; J7120

== ENCOUNTER 2021-01-09 02:01 | Emergency (ER) | payer MEDICAID ==
[~2021-01-09] VITALS: Ht 175.3 cm; Wt 70.0 kg
[~2021-01-09 02:01] MED LIST changes: +GABA600T7 PO; +MAGN400T26 PO; +MULT-449 PO
--- NOTE | 2021-01-09 02:17 | NUR ---
PT BIB [facility] WITH C/O CHEST PAIN WITH A 10/10 INTENSITY AT HIS HOME. PT CALLED EMS AND THEY ARRIVED FOR TRANSPORT. PIV TO RIGHT AC STARTED BY EMS 18G, AND INTACT, AND FLUSHES EASY AND NO REDNESS OR SWELLILNG. UNABLE TO DRAW BLOOD FROM IT. PT PLACED ON FULL CR MONITOR. PT RECEIVED ONE NITRO TAB AND 324 OF BABY ASA IN THE FIELD, AND STATES THAT HIS PAIN WENT FROM A 10 TO A 1. CURRENTLY IN THE ER HE CLAIMS HIS PAIN IS A 1. CXRY TO BEDSIDE TO CONDUCT CXRY AND PT TOLERATED WELL. PT PLACED IN GOWN AND ON FULL CR MONITOR. SIDERAILS UP X2 AND CALL LIGHT WITHIN REACH.
[2021-01-09] MEDS ORDERED: SODIUM CHLORIDE FLUSH 10ML SYR IVF ONE (02:30)
[2021-01-09 02:57] LABS: BASOPHILS % (AUTO) 1 % (0-1); EOSINOPHILS % (AUTO) 1 % (1-7); LYMPHOCYTES % (AUTO) 14 % (22-44); MEAN CORPUSCULAR HEMOGLOBIN 35.2 pg (27.5-34.5); MEAN CORPUSCULAR HGB CONC 34.5 g/dL (33.2-36.2); MEAN PLATELET VOLUME 7.4 fL (7.4-10.4); MONOCYTES % (AUTO) 14 % (2-9); NEUTROPHILS % (AUTO) 71 % (42-75); PLATELET COUNT 297 x10^3/uL (130-400); RED BLOOD COUNT 4.31 x10^6/uL (4.38-5.82); RED CELL DISTRIBUTION WIDTH 12.7 % (9.4-14.8)
[2021-01-09 03:01] LABS: MD NO
[2021-01-09 03:06] LABS: ALANINE AMINOTRANSFERASE 21 U/L (12-78); ALBUMIN 3.6 g/dL (3.4-5.0); ANION GAP 12 mmol/L (5-15); CALCIUM 8.8 mg/dL (8.5-10.1); CHLORIDE 99 mmol/L (98-107); CREATININE 0.67 mg/dL (0.7-1.3)
--- NOTE | 2021-01-09 03:08 | NUR ---
PT STATES CHEST PAIN IS COMING BACK WITH THE SHORTNESS OF BREATH. PTS O2 SAT DROPPED TO 86%. PT PLACED ON O2 NC 2LPM. MD ADVISED OF INCREASE IN CHEST PAIN, AND SECOND EKG ORDERED.
[2021-01-09 03:10] LABS: ALKALINE PHOSPHATASE 109 U/L (45-117); BILIRUBIN,TOTAL 0.7 mg/dL (0.2-1.0); TOTAL PROTEIN 7.6 g/dL (6.4-8.2); TROPONIN I < 0.015 ng/mL (0.000-0.045)
--- NOTE | 2021-01-09 03:10 | NUR ---
2ND EKG DONE AND PRINT OUT TO DR LORA
--- NOTE | 2021-01-09 03:15 | NUR ---
MD ORDERS RECEIVED, AND 2ND NITRO TAB GIVEN TO PT TONITE. FIRST ONE BY EMS. PT STATES RELIEF OF CHEST PAIN WHICH WAS AT A /. IVF NS 1LITER HUNG TO RUN TKO. ZOFRAN TAB GIVEN TO PT FOR ONGOING NAUSEA THAT HAS COME BACK AND IS GETTING WORST.
[2021-01-09] MEDS ORDERED: NITROGLYCERIN SINGLE TAB 0.4 MG SL ONE (03:16)
[2021-01-09] MEDS ORDERED: ONDANSETRON ODT 4 MG ONE (03:21)
[2021-01-09] MEDS ORDERED: SODIUM CHLORIDE 0.9% 1,000ML IVBOLUS ONE (03:30)
[2021-01-09] MEDS ORDERED: NITROGLYCERIN SINGLE TAB 0.4 MG SL PRN (03:30)
[2021-01-09] MEDS ORDERED: POTASSIUM CHLORIDE 20 MEQ TAB.ER.PRT PO ONE (03:30)
[2021-01-09] MEDS ORDERED: ONDANSETRON ODT 4 MG PO ONE (03:30)
[2021-01-09] MEDS ORDERED: POTASSIUM CHLORIDE 20 MEQ TAB.ER.PRT ONE (03:34)
--- NOTE | 2021-01-09 03:45 | NUR ---
PT MEDICATED WITH KDUR TOTAL OF 40 MEQ. PT HAS A 2.9 LEVEL OF POTASSIUM PER LAB DRAW. MD AWARE AND PT ON CR MONITOR, AND TOOK PILLS WELL. PT BACK TO RESTING.
[2021-01-09] MEDS ORDERED: MAGNESIUM OXIDE 400 MG TABLET ONE (03:52)
[2021-01-09] MEDS ORDERED: MAGNESIUM OXIDE 400 MG TABLET PO ONE (04:00)
--- NOTE | 2021-01-09 04:07 | NUR ---
PT MEDICATED WITH MAG OXY PO AND TOLERATED WELL, PT REMAINS ON CR MONITOR AND LIGHTS TURNED DOWN SO PT CAN REST FOR NOW.
[2021-01-09] MEDS ORDERED: OMNIPAQUE 350 MG/ML, 75ML BOTTLE ONE (04:40)
--- NOTE | 2021-01-09 04:48 | NUR ---
PT TAKEN TO CT SCAN FOR A CTA OF THE ARTERIES. PT BROUGHT BACK AND IS PLACED BACK ON FULL CR MONITOR. PT SLEEPING NOW, RESTING COMFORTABLY.
--- NOTE | 2021-01-09 04:59 | NUR ---
SECOND TROPONIN LEVEL TO BE DRAWN AT 0600. THE RESULTS WILL DETERMINE IF PT IS ADMITTED OR DISCHARGED. PT SLEEPING AT THIS TIME ON CR MONITOR, AND NO COMPLAINTS OF PAIN AT THIS TIME.
--- NOTE | 2021-01-09 05:20 | NUR ---
PTS GIRLFRIEND CALLED TO CHECK ON PT. SHE WAS UNAWARE THAT HE HAD LEFT AND HAD HAD THE CHEST PAIN, SHE WOKE UP AND HE WAS GONE. PT GAVE PERMISSION FOR HER TO GET INFORMATION. CONTACT INFO IS FOLLOWS. ALICIA CATALAN: [phone]
--- NOTE | 2021-01-09 06:26 | NUR ---
PT SLEEPING, NO ACUTE DISTRESS, SECOND TROPONIN LEVEL DRAWN AT 0610, AND MD WAITING ON RESULTS FOR DECISION TO ADMIT OR DISCHARGE HOME.
[2021-01-09 06:44] LABS: TROPONIN I < 0.015 ng/mL (0.000-0.045)
--- NOTE | 2021-01-09 06:51 | NUR ---
REPORT AND CARE TO LULU MCKENNA.
[2021-01-09 07:07] VITALS: BP 107/58
--- NOTE | 2021-01-09 07:10 | NUR ---
Patient/Caregiver given discharge instructions and they have confirmed that they understand the instructions. Patient ambulatory with steady gait.
== END 2021-01-09 07:11 | disposition home or self-care (01) ==
LOC: ED 05:34
DX: R07.2 Precordial pain (principal); R06.00 Dyspnea, unspecified; F17.210 Nicotine dependence, cigarettes, uncomplicated; R94.31 Abnormal electrocardiogram [ECG] [EKG]; I10 Essential (primary) hypertension; I48.91 Unspecified atrial fibrillation
CPT/HCPCS: 36415; 71045; 71275; 80053; 83735; 83880; 84484; 85025; 85379; 93005; 96360; 99285; 99406; J7030; Q0162; Q9967

== ENCOUNTER 2021-01-18 13:49 | Emergency (ER) | payer MEDICAID ==
[~2021-01-18] VITALS: Ht 175.3 cm; Wt 64.5 kg
[2021-01-18 14:27] LABS: BASOPHILS % (AUTO) 1 % (0-1); EOSINOPHILS % (AUTO) 1 % (1-7); LYMPHOCYTES % (AUTO) 36 % (22-44); MEAN CORPUSCULAR HEMOGLOBIN 34.5 pg (27.5-34.5); MEAN CORPUSCULAR HGB CONC 34.4 g/dL (33.2-36.2); MEAN PLATELET VOLUME 7.4 fL (7.4-10.4); MONOCYTES % (AUTO) 13 % (2-9); NEUTROPHILS % (AUTO) 50 % (42-75); PLATELET COUNT 361 x10^3/uL (130-400)
--- NOTE | 2021-01-18 14:33 | NUR ---
TASK RN: DR. ANDERSON TO BEDSIDE. VSS.
[2021-01-18 14:34] LABS: ALBUMIN 3.9 g/dL (3.4-5.0); ANION GAP 14 mmol/L (5-15); CALCIUM 8.8 mg/dL (8.5-10.1); CHLORIDE 104 mmol/L (98-107); CREATININE 0.87 mg/dL (0.7-1.3)
[2021-01-18 14:38] LABS: INTERNATIONAL NORMALIZED RATIO 1.03 (0.93-1.1)
[2021-01-18 14:39] LABS: TROPONIN I < 0.015 ng/mL (0.000-0.045)
[2021-01-18] MEDS ORDERED: FAMOTIDINE 20 MG/2 ML ONE (14:52)
[2021-01-18] MEDS ORDERED: PROMETHAZINE 25 MG/ML, 1ML ONE (14:52)
[2021-01-18 15:05] LABS: MD SCAN
[2021-01-18 15:27] VITALS: BP 146/96
[2021-01-18] MEDS ORDERED: SODIUM CHLORIDE 0.9% 1,000ML IVBOLUS ONE (15:30)
[2021-01-18] MEDS ORDERED: FAMOTIDINE 20 MG/2 ML IVPush ONE (15:30)
[2021-01-18] MEDS ORDERED: PROMETHAZINE 25 MG/ML, 1ML IM ONE (15:30)
[2021-01-18] MEDS ORDERED: SODIUM CHLORIDE FLUSH 10ML SYR IVF ONE (15:30)
== END 2021-01-18 16:24 | disposition home or self-care (01) ==
LOC: ED 15:11
DX: K52.9 Noninfective gastroenteritis and colitis, unspecified (principal); E86.0 Dehydration; R00.0 Tachycardia, unspecified; I10 Essential (primary) hypertension; I48.91 Unspecified atrial fibrillation
CPT/HCPCS: 36415; 71045; 80048; 82040; 83880; 84484; 85025; 85610; 85730; 93005; 96372; 96374; 99285; J2550

== ENCOUNTER 2021-03-13 18:38 | Emergency (ER) | payer MEDICAID ==
[~2021-03-13] VITALS: Ht 175.3 cm; Wt 65.8 kg
[2021-03-13 19:00] VITALS: BP 136/78
--- NOTE | 2021-03-13 19:49 | NUR ---
pt presents to the ed with right elbow pain. pt was feeding his cats and got tripped up and landed on his elbow. pt did not hit his head. pt resting on gurney, xray complete
--- NOTE | 2021-03-13 21:23 | NUR ---
Patient given discharge instructions and they have confirmed that they understand the instructions. Patient ambulatory with steady gait.
== END 2021-03-13 21:25 | disposition home or self-care (01) ==
LOC: ED 20:56
DX: S50.01XA Contusion of right elbow, initial encounter (principal); W01.0XXA Fall on same level from slipping, tripping and stumbling without subsequent striking against object, initial encounter; Y93.89 Activity, other specified; Y92.009 Unspecified place in unspecified non-institutional (private) residence as the place of occurrence of the external cause; Y99.8 Other external cause status
CPT/HCPCS: 99283

== ENCOUNTER 2021-04-01 02:33 | Emergency (ER) | payer MEDICAID ==
[~2021-04-01] VITALS: Ht 172.7 cm; Wt 81.0 kg
--- NOTE | 2021-04-01 02:50 | NUR ---
PT TO ROOM AT THIS TIME. CARE ASSUMED. PT REPORTS HAVING 1/2 A PINT OF ALCOHOL AROUND 1400 WHEN HE BECAME SOB WHILE AT REST AND REOPRTS SUBSTERNAL CHEST PRESSURE. EMS REPORTS PT HAS A HX OF AFIB RVR. PT CURRENTLY RESTING COMFORTABLY. MD AT BEDSIDE. DHRUV. VSSS. WILL CONTINUE TO MONITOR.
[2021-04-01] MEDS ORDERED: NITROGLYCERIN SINGLE TAB 0.4 MG SL ONE (02:54)
[2021-04-01 02:59] LABS: BASOPHILS % (AUTO) 1 % (0-1); EOSINOPHILS % (AUTO) 2 % (1-7); LYMPHOCYTES % (AUTO) 36 % (22-44); MEAN CORPUSCULAR HGB CONC 34.8 g/dL (33.2-36.2); MEAN PLATELET VOLUME 7.8 fL (7.4-10.4); MONOCYTES % (AUTO) 15 % (2-9); NEUTROPHILS % (AUTO) 47 % (42-75); PLATELET COUNT 166 x10^3/uL (130-400); RED BLOOD COUNT 4.31 x10^6/uL (4.38-5.82); RED CELL DISTRIBUTION WIDTH 14.1 % (9.4-14.8)
[2021-04-01] MEDS ORDERED: SODIUM CHLORIDE FLUSH 10ML SYR IVF ONE (03:00)
[2021-04-01] MEDS ORDERED: NITROGLYCERIN SINGLE TAB 0.4 MG SL PRN (03:00)
[2021-04-01 03:15] LABS: ALANINE AMINOTRANSFERASE 19 U/L (12-78); ALBUMIN 3.2 g/dL (3.4-5.0); ANION GAP 14 mmol/L (5-15); CHLORIDE 99 mmol/L (98-107); CREATININE 0.63 mg/dL (0.7-1.3)
[2021-04-01 03:20] LABS: ALKALINE PHOSPHATASE 124 U/L (45-117); BILIRUBIN,TOTAL 1.1 mg/dL (0.2-1.0); TOTAL PROTEIN 7.1 g/dL (6.4-8.2); TROPONIN I < 0.015 ng/mL (0.000-0.045)
[2021-04-01] MEDS ORDERED: POTASSIUM CHLORIDE 40 MEQ in SODIUM CHLORIDE 0.9% 500 ML IV ONE (03:30)
[2021-04-01] MEDS ORDERED: POTASSIUM CHLORIDE 20 MEQ TAB.ER.PRT PO ONE ×2 (03:30→05:30)
[2021-04-01] MEDS ORDERED: MAGNESIUM SULFATE 1 GM, THIAMINE 100 MG, FOLIC ACID 1 MG, MVI ADULT 10 ML in SODIUM CHL... IV ONE (03:30)
[2021-04-01] MEDS ORDERED: POTASSIUM CHLORIDE 20 MEQ TAB.ER.PRT ONE ×2 (03:55→05:19)
--- NOTE | 2021-04-01 06:47 | NUR ---
PT SLEEPING. NADN. VSS. WILL CONTINUE TO MONITOR
--- NOTE | 2021-04-01 06:51 | NUR ---
CARE TRANSFERED. REPORT GIVEN TO BALA VENEGAS
[2021-04-01 08:35] VITALS: BP 138/74
--- NOTE | 2021-04-01 08:45 | NUR ---
Both IV's removed with tip intact. Patient given discharge instructions and prescription and they have confirmed that they understand the instructions. Patient ambulatory with steady gait. NAD, all questions answered appropriately, denies additional needs at this time. No personal belongings left in room after discharge.
== END 2021-04-01 08:46 | disposition home or self-care (01) ==
LOC: ED 06:32
DX: E87.6 Hypokalemia (principal); F10.220 Alcohol dependence with intoxication, uncomplicated; R07.89 Other chest pain; R06.02 Shortness of breath; I10 Essential (primary) hypertension; I48.91 Unspecified atrial fibrillation
CPT/HCPCS: 36415; 71045; 80053; 80320; 83735; 83880; 84132; 84484; 85025; 93005; 96365; 96366; 96368; 99285; J3411; J3475; J3480; J7030; J7040; G0480